=== PATIENT | female | born 1950 | race Caucasian/White ===

== ENCOUNTER 2016-08-08 04:57 | Day surgery (SDC) | payer OTHER ==
[2016-07-25 11:15] VITALS: BMI 24.0
--- NOTE | 2016-07-25 11:44 | PAT Medication Instructions ---
Service Date Jul 25, 2016. Current Home Medication List Acetaminophen (Tylenol), 1,000 MG PO QID PRN for Headache or Pain Aspirin (Aspirin Ec), 325 MG PO HS Bupropion (Wellbutrin Sr), 150 MG PO BID Clonazepam (Klonopin), 0.5 MG PO BID Cyanocobalamin (Vitamin B12), 1 TAB PO QAM Hydrochlorothiazide (Hydrochlorothiazide), 25 MG PO QPM Magnesium Oxide-Cholecalcifero (Magnesium & Vitamin D3/Tu), 1 CAP PO QAM Omeprazole (Prilosec), 20 MG PO BID Potassium Ext Rel (Klor-Con), 20 MEQ PO QAM Saccharomyces Boulardii (Probiotic), 1 CAP PO QAM Simvastatin (Zocor), 20 MG PO QPM Medication Instructions For Your Scheduled Surgery - Check with surgeon/family doctor for instructions: Aspirin (Aspirin Ec), 325 MG PO HS - Hold the following medications the morning of surgery: Saccharomyces Boulardii (Probiotic), 1 CAP PO QAM Potassium Ext Rel (Klor-Con), 20 MEQ PO QAM Magnesium Oxide-Cholecalcifero (Magnesium & Vitamin D3/Tu), 1 CAP PO QAM Cyanocobalamin (Vitamin B12), 1 TAB PO QAM - Take the following medications the morning of surgery with a sip of water: Omeprazole (Prilosec), 20 MG PO BID Clonazepam (Klonopin), 0.5 MG PO BID Bupropion (Wellbutrin Sr), 150 MG PO BID Acetaminophen (Tylenol), 1,000 MG PO QID PRN for Headache or Pain - Take the following medications as scheduled the night before surgery: Simvastatin (Zocor), 20 MG PO QPM Omeprazole (Prilosec), 20 MG PO BID Hydrochlorothiazide (Hydrochlorothiazide), 25 MG PO QPM Clonazepam (Klonopin), 0.5 MG PO BID Bupropion (Wellbutrin Sr), 150 MG PO BID Acetaminophen (Tylenol), 1,000 MG PO QID PRN for Headache or Pain If you have any questions please call us at [phone] (Maria Ines Ray PA-C) or [phone] or [phone]
[2016-07-25 12:18] LABS: BASO % 0.8 %; BASO ABS # 0.04 K/uL (0-0.2); COMPLETE YES; EOS % 2.5 %; HEMATOCRIT 36.9 % (37-47); IG% 0.6 %; LYMPH % 24.4 %; LYMPH ABS # 1.25 K/uL (1.2-3.4); MEAN CELL VOLUME 95.6 fL (80-100); MEAN CORPUSCULAR HEMOGLOBIN 32.6 pg (25-34); MEAN CORPUSCULAR HGB CONC 34.1 g/dl (32-36); MEAN PLATELET VOLUME 9.6 fL (7.4-10.4); MONO % 7.6 %; NEUT % 64.1 %; PLATELET COUNT 248 K/uL (130-400); RED BLOOD COUNT 3.86 M/uL (4.2-5.4); WHITE BLOOD COUNT 5.13 K/uL (4.8-10.8)
[2016-07-25 12:23] LABS: URINE APPEARANCE CLEAR (CLEAR); URINE BILIRUBIN NEG (NEG); URINE COLOR YELLOW; URINE NITRITE NEG (NEG); URINE SPECIFIC GRAVITY 1.021 (1.000-1.030); UROBILINOGEN NEG (NEG)
[2016-07-25 12:25] LABS: BUN/CREATININE RATIO 15.7 (10-20); CALCIUM 9.5 mg/dl (8.5-10.1); CREATININE 1.1 mg/dl (0.60-1.20); POTASSIUM 3.9 mmol/L (3.5-5.1)
[2016-07-25 12:35] LABS: MANUAL MICROSCOPIC REQUIRED? NO; REVIEW REQ? NO
[~2016-08-08] VITALS: Ht 152.4 cm; Wt 57.3 kg
[~2016-08-08 04:57] MED LIST: ACET-1256 PO; ASPI325T39 PO; BUPR-79 PO; CLON0.5T3 PO; CYAN100020 PO; HYDR12.55 PO; MAGN1CAP3 PO; POTA20TA16 PO; PRLSR20 PO; SACC250C11 PO; SIMV20TA2 PO
[2016-08-08 05:40] VITALS: BP 119/67; PULSE 79; TEMP 37.1; O2SAT 95; Ht 152.4 cm; Wt 57.3 kg
[2016-08-08] MEDS ORDERED: LACTATED RINGER'S 1000ML 1,000 ML IV SCH (06:00)
[2016-08-08] MEDS ORDERED: CEFAZOLIN 2000 MG/60 ML D5W IV SCH (06:00)
[2016-08-08] MEDS ORDERED: PROPOFOL IV EMULSION 10 MG/ML 20 ML VIAL IV ONE (06:46)
[2016-08-08] MEDS ORDERED: FENTANYL CITRATE INJ 50 MCG/1 ML 2 ML VIAL ONE ×2 (06:46→08:20)
[2016-08-08] MEDS ORDERED: MIDAZOLAM HCL 1 MG/ML 2ML VIAL ONE (06:46)
[2016-08-08] MEDS ORDERED: LIDOCAINE HCL 2% 2 ML VIAL (20MG/ML) ONE (06:46)
--- NOTE | 2016-08-08 06:47 | History & Physical Bridge Note ---
H&P Re-Evaluation Bridge Note: I have examined the patient, reviewed the History & Physical and in the interval since the performance of the History & Physical I have noted the following changes of clinical significance: No changes noted
[2016-08-08] MEDS ORDERED: BACITRACIN 50000 UNIT VIAL ONE (06:54)
[2016-08-08] MEDS ORDERED: LIDOCAINE/EPINEPHRINE 1% 20 ML VIAL ONE (06:54)
[2016-08-08] MEDS ORDERED: PREMARIN VAG CRM 14 APPLN/30 GM TUBE ONE (06:54)
[2016-08-08] MEDS ORDERED: PHENYLEPHRINE 100MCG/ML 5ML SYR ONE (07:22)
[2016-08-08] MEDS ORDERED: ONDANSETRON INJ 2 MG/ML 2 ML VIAL ONE (07:22)
[2016-08-08] MEDS ORDERED: MoRPHine SULFATE 2 MG/ML CARP ONE (07:23)
[2016-08-08] MEDS ORDERED: FENTANYL CITRATE INJ 50 MCG/1 ML 2 ML VIAL IV PRN (07:45)
[2016-08-08] MEDS ORDERED: ONDANSETRON INJ 2 MG/ML 2 ML VIAL IV PRN (07:45)
[2016-08-08] MEDS ORDERED: ATROPINE SULFATE 0.1 MG/ML 5ML SYR IV PRN (07:45)
[2016-08-08] MEDS ORDERED: OXYCODONE/ACETAMINOPHEN 5-325 TAB PO PRN (08:00)
[2016-08-08] MEDS ORDERED: PHENAZOPYRIDINE HCL 200 MG TAB PO PRN (08:00)
[2016-08-08] MEDS ORDERED: DOCU-94 PO (08:01)
[2016-08-08] MEDS ORDERED: CIPR1TAB10 PO (08:01)
[2016-08-08] MEDS ORDERED: PHEN-876 PO (08:01)
[2016-08-08] MEDS ORDERED: OXYC-57 PO (08:01)
--- NOTE | 2016-08-08 08:10 | Discharge Instructions ---
Discharge Instructions Date of Service Aug 08, 2016. Admission Reason for Admission: Female Stress Incontinence Discharge Discharge Diagnosis / Problem: Female stress urinary incontinence Discharge Goals Goal(s): Decrease discomfort, Therapeutic intervention Activity Recommendations Activity Limitations: as noted below Lifting Limitations: no more than 25 pounds Exercise/Sports Limitations: rest today, until after follow-up appointment ( Light activity x 2 weeks. ) May Resume Sexual Activity: after follow-up appointment (when cleared by Dr. Arellano) Shower/Bathe: tomorrow Driving or Machine Use: resume 3 days after discharge . Discharge Diet Recommended Diet: Regular Diet Procedures Procedures Performed: Retro Pubic Mid Urethral Sling:cystoscopy Pending Studies Studies pending at discharge: no Medical Emergencies . Who to Call and When: Medical Emergencies: If at any time you feel your situation is an emergency, please call 911 immediately. . Non-Emergent Contact Non-Emergency issues call your: Urologist Call Non-Emergent contact if: temperature is above 101.5, your pain is not controlled, your pain is worsening, your pain is unusual for you, your pain is concerning you, you have any medication questions . . "Provider Documentation" section prepared by Xena Colin. VTE Core Measure Inpt VTE Proph given/why not?: [place]CD[place] Drug Monitoring Program Search Results: patient reviewed within database, see additional documentation (multiple clonazepam prescriptions; no narcotics ntoed)
--- NOTE | 2016-08-08 08:14 | [facility] Post Operative Brief Note ---
Immediate Operative Summary Operative Date Aug 08, 2016. Pre-Operative Diagnosis Stress Incontinence after recent anterior repair Post-Operative Diagnosis Stress Incontinence after recent anterior repair Procedure(s) Performed Retro Pubic Mid Urethral Sling:cystoscopy Surgeon Dr. Arellano Warp Yarn Sorter Surgeon(s) Xena Madison Estimated Blood Loss 25 ML Findings Severe stress incontinence; very short vagina s/p anterior repair Specimens NONE Drains dover (to be removed in PACU) Anesthesia gen Complication(s) None Disposition Recovery Room / PACU (stable)
--- NOTE | 2016-08-08 08:58 | OPERATIVE REPORT ---
DATE OF OPERATION: 08/08/2016 PREOPERATIVE DIAGNOSIS: Severe stress incontinence. POSTOPERATIVE DIAGNOSIS: Severe stress incontinence. PROCEDURE PERFORMED: Cystoscopy and AMS RetroArc retropubic mid urethral sling, reference #[id number], lot #[id number]. ANESTHESIA: General. ESTIMATED BLOOD LOSS: 25 mL URINE OUTPUT: Not recorded. SPECIMENS: There are no specimens. DRAINS: There is a Toscano catheter which will be removed in the PACU. DESCRIPTION OF THE PROCEDURE: Elsa golden was identified in the preoperative holding area. Appropriate informed consents were reviewed and completed, and the patient was transported to the operating suite. Upon arrival, she received appropriate preoperative antibiotics in the form of Ancef. Adequate general anesthesia was achieved and the patient was placed in dorsolithotomy position where she was sterilely prepped and draped in standard fashion. I began the case by marking 2 potential incision sites, just 1 cm lateral to the midline, just above the pubic symphysis. I additionally evaluated at the vaginal vault. Of note, she is status post recent anterior urethropexy. She has an extremely short vagina, approximately 4 cm in maximal length. I was able to palpate the Toscano balloon after inserting the balloon and pulling it back to the bladder neck. I placed an Allis clamp just distal to the Toscano balloon on the proximal urethra. I placed an additional Allis clamp just below the urethra to help elevate the urethra and periurethral tissues out toward the vaginal introitus. I then infiltrated this midline area with 1% lidocaine with epinephrine, followed by hydrodissection utilizing the same lidocaine into the lateral aspect on the right and the left at my intended path of dissection. I then made a midline skin incision of approximately 1 cm utilizing a 15 blade scalpel. I carried this through the superficial tissues of the vaginal wall with care to avoid incursion into the urethra. I used Metzenbaum scissors to create an avenue of passage lateral to the urethra and bladder on each side with care to avoid buttonholing into the vaginal vault. I was able to dissect down underneath the pubic arch and easily palpate the arch with the Metzenbaum scissors. Following this dissection, I made 2 small nicks on the skin at my previously marked areas over the pubic symphysis. I then completely emptied the bladder utilizing the Toscano catheter before passing the metal trocars from the RetroArc system. Each trocar passed without difficulty and was easily directed into my suprapubic incisions. Following passage, I left the [address], I withdrew the Toscano catheter, and I performed a full cystoscopy with the 70-degree lens as well as a 30-degree lens. There was no evidence of any bladder injury or chcalir-ryf-[id number] passage of the trocars. Bladder was healthy appearing, although she was noted to have severe stress incontinence and was essentially unable to hold any urine at this stage. Following my inspection, I withdrew the cystoscope and I replaced the Toscano catheter and again completely decompressed the bladder. I then attached the sling to the vaginal ends of the metal trocars and prepositioned it with the plastic sleeves in place. I inserted Metzenbaum scissors between the urethra and the sling itself to create appropriate space and then withdrew the plastic sleeves. I fine tuned this with the mesh itself, confirming a good fit without significant tension. I trimmed the suprapubic region of the mesh down below the skin edge. I confirmed an appropriate lie of the vaginal aspect of this. I then closed the vaginal incision utilizing a 2-0 Vicryl stitch in running fashion. At that time, I filled the bladder via the Toscano catheter, withdrew the catheter, and applied suprapubic pressure and saw no evidence of active leaking with a significant improvement in her stress incontinence. Toscano catheter was reinserted as was a Premarin-soaked vaginal packing into her vagina. The suprapubic wounds were dressed with Dermabond and there was no additional dressing placed on the vaginal incision. The patient was subsequently reversed from anesthesia and sent to the PACU in stable condition. There were no complications. I attest to the content of the Intraoperative Record and any orders documented therein. Any exceptio ns are noted below.
[2016-08-08 09:00] VITALS: BP 110/71; PULSE 88; TEMP 36.6; O2SAT 97
--- NOTE | 2016-08-08 09:07 | Anesthesiology Progress Note ---
Anesthesia Post Op Note Date & Time Aug 08, 2016 at 09:06 Vital Signs Pain Intensity: 0 Vital Signs Past 12 Hours Date Time Temp Pulse Resp B/P Pulse Ox O2 Delivery O2 Flow Rate FiO2 08/08/16 08:50 88 18 119/84 94 Room Air 08/08/16 08:40 87 23 128/77 96 Room Air 08/08/16 08:30 36.1 88 20 123/75 93 Room Air 08/08/16 08:20 90 14 125/76 100 Mask 10 08/08/16 08:10 92 16 115/77 100 Mask 10 08/08/16 08:00 36.4 114 18 124/79 100 Mask 10 08/08/16 05:40 37.1 79 18 119/67 95 Room Air Notes Mental Status: alert / awake / arousable, participated in evaluation Pt Amnestic to Procedure: Yes Nausea / Vomiting: adequately controlled Pain: adequately controlled Airway Patency, RR, SpO2: stable & adequate BP & HR: stable & adequate Hydration State: stable & adequate Anesthetic Complications: no major complications apparent
[2016-08-08 09:35] VITALS: BP 112/67; PULSE 85; O2SAT 98
[2016-08-08 10:10] VITALS: BP 108/77; PULSE 78; TEMP 36.5; O2SAT 98
[2016-08-08 11:00] VITALS: BP 102/64; PULSE 75; O2SAT 96
[2016-08-08 12:00] VITALS: BP 104/57; PULSE 71; O2SAT 94
== END 2016-08-08 13:44 | disposition home or self-care (01) ==
LOC: C.ACU 04:57
PROVIDERS: ATTEND Urology
DX: N39.3 Stress incontinence (female) (male) (principal); I10 Essential (primary) hypertension; E78.5 Hyperlipidemia, unspecified; Z88.5 Allergy status to narcotic agent; Z88.2 Allergy status to sulfonamides; Z98.890 Other specified postprocedural states; Z98.818 Other dental procedure status; Z90.89 Acquired absence of other organs; Z87.891 Personal history of nicotine dependence; Z82.49 Family history of ischemic heart disease and other diseases of the circulatory system; Z80.0 Family history of malignant neoplasm of digestive organs; Z80.3 Family history of malignant neoplasm of breast; Z80.1 Family history of malignant neoplasm of trachea, bronchus and lung

== ENCOUNTER → 2016-11-21 | Outpatient (CLI) | payer OTHER ==
[~2016-11-21] MED LIST changes: +CIPR1TAB10 PO; +OXYC-57 PO; +PHEN-876 PO
--- NOTE | 2016-11-21 11:42 | DIAGNOSTIC IMAGING REPORT ---
(BARIUM SWALLOW) ESOPHAGUS CLINICAL HISTORY: R13.14 Dysphagia, pharyngoesophageal phase PATIENT WITH HISTORY O COMPARISON STUDY: None FLUOROSCOPY TIME: 1.3 minutes. FINDINGS: Patient initiates swallowing function well. No evidence for aspiration. Mild esophageal spasm. Gas esophageal junction is unremarkable. IMPRESSION: Mild esophageal irritability. Otherwise negative study. Patient swallowed the barium tablet easily , and passed easily to the stomach. The above report was generated using voice recognition software. It may contain grammatical, syntax or spelling errors. Electronically signed by: Jose E Garnica M.D. 11/21/2016 11:41 AM Dictated Date/Time: 11/21/2016 11:39 AM
== END | disposition home or self-care (01) ==
LOC: C.RAD 10:23
DX: R13.14 Dysphagia, pharyngoesophageal phase (principal)

== ENCOUNTER → 2016-12-19 | Outpatient (CLI) | payer OTHER ==
[2016-12-19 14:55] VITALS: BP 97/60; PULSE 72; TEMP 37.1; O2SAT 93
--- NOTE | 2016-12-19 16:45 | Radiation Oncology Follow-Up ---
Radiation Oncology Follow-Up Date of Visit Dec 19, 2016. 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 Radiation completed 09/06/2012 received 7200 cGy. Last Edited By: Gayathri Lackey on Dec 01, 2015 16:20 Interim History She continues to have complaints of difficulty with swallowing. We had discussed these similar symptoms last year. She has a "choking sensation" at times. This is sporadic. Skin occur even with eating mashed potatoes. At times food will get stuck. She will have discomfort on the right side of her neck. She has dryness of the mouth. She occasionally has hoarseness. She was seen by ENT and had NPL examination on 11/17/2016. Flexible laryngoscopy showed no evidence of mass or lesions involving her nasal pharynx, oral pharynx , hypopharynx, or [place] next. She has mild post radiation edema involving her true vocal cords and post cricoid region. There is no pooling of secretions within the piriform sinuses. She had no palpable lymphadenopathy. She underwent an evaluation with a barium swallow 11/21/2016. This showed mild esophageal irritability. This was described as mild esophageal spasm. Studies otherwise negative. At her last visit 1 year ago it was recommended that she be seen by speech therapy and have a video swallow study. Arrangements were made at [facility]. In reviewing the records it appears that there was difficulty notifying the patient. She did not follow through with speech therapy. Allergies Coded Allergies: Buspirone (Verified Allergy, Severe, THROAT SWELLS, NUMBNESS, 08/08/16) Iodinated Diagnostic Agents (Verified Allergy, Severe, PT SAID SHE WAS "CHOKING", 08/08/16) Cimetidine (Verified Allergy, Unknown, UNKNOWN, 08/08/16) PER 08/28/12 ANCEF ORDER Gabapentin (Verified Allergy, Unknown, PT SAYS SHE WAS "OUT OF HER MIND", 08/08/16) Ibuprofen (Verified Allergy, Unknown, itching, 08/08/16) Sulfa Antibiotics (Verified Allergy, Unknown, Unknown, 08/08/16) Codeine (Verified Adverse Reaction, Unknown, NAUSEA, VOMITING, 08/08/16) Home Medications Scheduled Aspirin (Aspirin Ec), 325 MG PO HS Bupropion (Wellbutrin Sr), 150 MG PO BID Clonazepam (Klonopin), 0.5 MG PO BID Cyanocobalamin (Vitamin B12), 1 TAB PO QAM Hydrochlorothiazide (Hydrochlorothiazide), 25 MG PO QPM Magnesium Oxide-Cholecalcifero (Magnesium & Vitamin D3/Tu), 1 CAP PO QAM Omeprazole (Prilosec), 20 MG PO BID Potassium Ext Rel (Klor-Con), 20 MEQ PO QAM Saccharomyces Boulardii (Probiotic), 1 CAP PO QAM Simvastatin (Zocor), 20 MG PO QPM Scheduled PRN Acetaminophen (Tylenol), 1,000 MG PO QID PRN for Headache or Pain Review of Systems Gastrointestinal: Symptoms: Nausea, Vomiting, Diarrhea GI Comments: Episodes of diarrhea associated with nausea and occass. emesis; Oral: Symptoms: Scant Saliva/Dry Mouth Other Oral Symptoms: See below notations Respiratory: Symptoms: WNL Urinary: Symptoms: WNL Skin: Symptoms: No Problems Physical Exam Vital Signs Date Time Temp Pulse Resp B/P (MAP) Pulse Ox O2 Delivery O2 Flow Rate FiO2 12/19/16 14:55 37.1 72 16 97/60 93 General Appearance: no apparent distress Eyes: normal inspection, EOMI ENT: normal ENT inspection, hearing grossly normal Neck: no adenopathy, thyroid normal Respiratory/Chest: lungs clear, no respiratory distress, no accessory muscle use Cardiovascular: regular rate, rhythm, no gallop, no murmur Abdomen: non tender Extremities: no pedal edema Neurologic/Psychiatric: no motor/sensory deficits, alert, normal mood/affect Skin: warm/dry Additional Studies Barium swallow as reviewed above. Assessment & Plan Plan: We discussed speech therapy evaluation. Patient was in agreement. Our office will call LD Fuller to contact the patient. We did review her phone number. This was the number that was in our system to contact the patient. She 'll continue follow-up with ENT and her primary care physician. We asked her to return to our office in 1 year. She may call if she has any questions or concerns. Total Time In Follow-Up I spent 25 minutes the need to the patient and performing examination. I spent 15 minutes reviewing information in completing this note. Copy To John Du M.D.; Tyrell Gray MD
== END | disposition home or self-care (01) ==
LOC: C.ONC 14:50
PROVIDERS: ATTEND Radiology Radiation Oncology
DX: Z08 Encounter for follow-up examination after completed treatment for malignant neoplasm (principal); Z92.3 Personal history of irradiation; Z85.21 Personal history of malignant neoplasm of larynx

== ENCOUNTER → 2017-07-05 | Outpatient (CLI) | payer OTHER ==
[~2017-07-05] MED LIST changes: -CIPR1TAB10 PO; +HYDR25TA4 PO; -OXYC-57 PO; -PHEN-876 PO
[2017-07-05 16:37] LABS: BASO ABS # 0.06 K/uL (0-0.2); EOS % 1.3 %; EOS ABS # 0.08 K/uL (0-0.5); HEMOGLOBIN 13.3 g/dL (12.0-16.0); IG# 0.04 K/uL (0.00-0.02); LYMPH % 20.5 %; LYMPH ABS # 1.29 K/uL (1.2-3.4); MEAN CELL VOLUME 96.5 fL (80-100); MEAN CORPUSCULAR HEMOGLOBIN 32.9 pg (25-34); MEAN CORPUSCULAR HGB CONC 34.1 g/dl (32-36); MEAN PLATELET VOLUME 9.5 fL (7.4-10.4); MONO % 5.7 %; MONO ABS # 0.36 K/uL (0.11-0.59); NEUT % 70.9 %; NEUT ABS # 4.46 K/uL (1.4-6.5); PLATELET COUNT 311 K/uL (130-400); RED CELL DISTRIBUTION WIDTH CV 12.4 % (11.5-14.5); RED CELL DISTRIBUTION WIDTH SD 43.5 fL (36.4-46.3); WHITE BLOOD COUNT 6.29 K/uL (4.8-10.8)
[2017-07-05 16:45] LABS: INR 0.9 (0.9-1.1); PTT PATIENT 28.9 SECONDS (21.0-31.0)
[2017-07-05 16:58] LABS: POTASSIUM 3.2 mmol/L (3.5-5.1)
== END | disposition home or self-care (01) ==
LOC: C.CPL 15:16
DX: Z01.818 Encounter for other preprocedural examination (principal)

== ENCOUNTER → 2017-07-20 | Day surgery (SDC) | payer OTHER ==
[2017-07-10 14:13] VITALS: Ht 154.9 cm; Wt 55.0 kg
[~2017-07-20] VITALS: Ht 154.9 cm; Wt 55.0 kg
[~2017-07-20] MED LIST changes: -HYDR12.55 PO; +LACTATED RINGER'S 1000ML 1,000 ML IV SCH; +POTA-639 PO; -POTA20TA16 PO
== END | disposition home or self-care (01) ==
LOC: EDSTATUS 07:00 → C.PAT 16:26
DX: R49.0 Dysphonia (principal); Z53.9 Procedure and treatment not carried out, unspecified reason